=== PATIENT | male | born 1995 | race Caucasian/White ===

== ENCOUNTER 2019-07-05 02:55 | Inpatient (IN) | payer OTHER ==
[2019-07-05] MEDS ORDERED: Morphine 4 MG/ML VIAL ONE ×2 (03:22→04:32)
[2019-07-05] MEDS ORDERED: Ampicillin 2 GM VIAL ONE (03:24)
[2019-07-05] MEDS ORDERED: Ampicillin/Sulbactam 1.5 GM in Sodium Chloride 0.9% 100 ML IVPB SCH (03:30)
[2019-07-05 05:01] LABS: #Basophils 0.1 thou/uL (0.0-0.2); #Eosinphils 0.1 thou/uL (0.0-0.7); #Monocytes 0.9 thou/uL (0.11-0.59); #Neutrophils 5.2 thou/uL (1.40-6.50); %Basophils 1.1 % (0.0-1.0); %Eosinophils 0.7 % (0.0-10.0); %Monocytes 10.7 % (0.0-10.0); %Neutrophils 63.6 % (42.0-75.0); Hemoglobin 14.3 g/dL (14.0-18.0); Mean Corpuscular HGB CONC 32.2 g/dL (32.0-36.0); Mean Corpuscular Hemoglobin 29.8 pg (27.0-31.0); Mean Corpuscular Volume 92.5 fL (78.0-98.0); Mean Platelet Volume 8.3 fL (7.4-10.4); Platelet Count 272 thou/uL (130-400); RBC Distribution Width 11.4 % (11.5-14.5); White Blood Cell (WBC) Count 8.2 thou/uL (4.8-10.8)
[2019-07-05 05:22] LABS: ALT (SGPT) 18 U/L (8-55); AST (SGOT) 20 U/L (5-34); Albumin 4.4 g/dL (3.5-5.0); Alcohol 178 mg/dL (Less than 10); Alkaline Phosphatase 106 U/L (40-110); Anion Gap 12 mmol/L (10-20); BUN (Urea Nitrogen) 6 mg/dL (8.9-20.6); Bilirubin, Total 0.3 mg/dL (0.2-1.2); Calc. Creatinine Clearance 0 mL/min (70-130); Calcium 9.1 mg/dL (7.8-10.44); Carbon Dioxide 28 mmol/L (22-29); Chloride 110 mmol/L (98-107); Estimated GFR-MDRD Greater than 90; Globulin 2.8 g/dL (2.4-3.5); Glucose 106 mg/dL (70-105); Potassium 3.7 mmol/L (3.5-5.1); Protein, Total 7.2 g/dL (6.0-8.3); Sodium 146 mmol/L (136-145)
[2019-07-05] MEDS ORDERED: Dextrose 50% Abboject 50 ML SYRINGE SLOW IVP PRN (06:18)
[2019-07-05] MEDS ORDERED: Ondansetron ODT 4 MG TAB PO PRN (06:18)
[2019-07-05] MEDS ORDERED: Morphine 2 MG/ML SYRINGE SLOW IVP PRN (06:18)
[2019-07-05] MEDS ORDERED: Dextrose 5% in Water 1,000 ML IV PRN (06:18)
[2019-07-05] MEDS ORDERED: Ondansetron PF 4 MG/2 ML Vial IVP PRN (06:18)
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
[2019-07-05] MEDS: Ketorolac Tromethamine 30 MG/ML VIAL IVP SCH ×3 (06:34→18:39)
[2019-07-05] MEDS: Clindamycin/D5W 600 MG in Premix Bag 1 BAG IVPB SCH ×3 (06:35→21:20)
[2019-07-05] MEDS: Sodium Chloride 0.9% 1,000 ML IV SCH ×3 (06:35→22:16)
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
[2019-07-05] MEDS: Famotidine/PF 20 mg/2ml Vial SLOW IVP SCH ×2 (08:30→21:20)
[2019-07-05] MEDS ORDERED: Succinylcholine Chloride 20 MG/ML 10 ml SYRINGE FS ONE (09:43)
[2019-07-05] MEDS ORDERED: Dexamethasone 20 MG/5 ML VIAL ONE (09:43)
[2019-07-05] MEDS ORDERED: Lidocaine 1% PF 5 ML VIAL ONE (09:43)
[2019-07-05] MEDS ORDERED: PROPOFOL 200 MG/20 ML VIAL ONE (09:43)
[2019-07-05] MEDS ORDERED: Ondansetron PF 4 MG/2 ML Vial ONE (09:43)
[2019-07-05] MEDS ORDERED: Rocuronium Bromide 10 MG/ML (10ML VIAL) ONE (09:43)
[2019-07-05] MEDS ORDERED: Ketorolac Tromethamine 30 MG/ML VIAL ONE (09:43)
[2019-07-05] MEDS ORDERED: EPHEDRINE 25 MG/5 ML SYRINGE ONE (09:43)
[2019-07-05 11:28] VITALS: BMI 19.9
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
[2019-07-05] MEDS ORDERED: Fentanyl 100 MCG/2 ML VIAL ONE ×3 (16:00→19:35)
[2019-07-05] MEDS ORDERED: Lidocaine 1% w/Epinephrine 1:100K 20 ML VIAL ONE (16:14)
[2019-07-05] MEDS ORDERED: Bupivacaine 0.25% HCL 30 ML VIAL ONE (16:14)
[2019-07-05] MEDS ORDERED: Chlorhexidine Gluconate 15 ML UDCUP SSP ONE (16:14)
[2019-07-05] MEDS ORDERED: Hydrocortisone 1% Cream 30 GM TUBE ONE (16:14)
[2019-07-05] MEDS ORDERED: EPINEPHrine 1 MG/ML AMP ONE (16:14)
[2019-07-05] MEDS ORDERED: AFRIN NASAL MIST 15 ML BOT ONE (16:31)
[2019-07-05] MEDS ORDERED: PACU-Morphine 4MG/ML VIAL SLOW IVP PRN (19:25)
[2019-07-05] MEDS ORDERED: Ondansetron HCl/PF 4 MG/2 ML Vial IVP PRN (19:25)
[2019-07-05] MEDS ORDERED: Promethazine HCl 25 MG/ML VIAL IM PRN (19:25)
[2019-07-05] MEDS ORDERED: Promethazine HCl 25 MG/ML VIAL SLOW IVP PRN (19:25)
[2019-07-05] MEDS ORDERED: HYDROmorphone 2 MG/ML VIAL SLOW IVP PRN (19:25)
[2019-07-05] MEDS ORDERED: Acetaminophen/Codeine 120-12MG/5 ML UDCUP PO PRN (21:51)
[2019-07-05] MEDS: Ibuprofen 100 MG/5 ML UDCUP PO SCH (22:16)
[2019-07-05] MEDS: Acetaminophen 650 MG/20.3 ML UDCUP PO SCH (23:01)
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
[2019-07-05] MEDS ORDERED: Ibuprofen 100 MG/5 ML UDCUP PO SCH (23:59)
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
[2019-07-06] MEDS: Acetaminophen 650 MG/20.3 ML UDCUP PO SCH ×2 (05:45→12:00)
[2019-07-06] MEDS: Clindamycin/D5W 600 MG in Premix Bag 1 BAG IVPB SCH (05:45)
[2019-07-06] MEDS: Ibuprofen 100 MG/5 ML UDCUP PO SCH (05:45)
[2019-07-06 07:17] VITALS: BP 110/66; TEMP 97.8
[2019-07-06] MEDS: Famotidine/PF 20 mg/2ml Vial SLOW IVP SCH (08:52)
[2019-07-06] MEDS ORDERED: Chlorhexidine Gluconate 15 ML UDCUP SSP SCH (09:00)
--- NOTE | 2019-07-09 10:23 | PQF ---
ALONDRA ERWIN JOHN A JR MD [id number] SURG B- [id number] CLINICAL DOCUMENTATION CLARIFICATION FORM: POST DISCHARGE Addendum to original discharge summary date: ____ Late entry note date: __ DATE: 07/09/2019 ATTN:ARNIE HUNTER JR, MD Please exercise your independent, professional judgment in responding to the clarification form. Clinical indicators are provided on the bottom of this form for your review Please check appropriate box(s): [ ] Under weight [ ] Cachexia [ ] Loss of weight [ ] Other diagnosis [ x ] Unable to determine For continuity of documentation, please document condition throughout progress notes and discharge summary. Thank You. CLINICAL INDICATORS - SIGNS / SYMPTOMS / LABS BMI-19.9-Documented in FNS Assessment Height -1.88 M-Documented in FNS Assessment Current weight-70.307kg-Documented in FNS Assessment Right mandibular subcondylar fracture -Documented in OP note on 07/04 by Delonte Benjamin Left mandibular parasymphysis fracture -Documented in OP note on 07/04 by Delonte Benjamin RISK FACTORS BMI-19.9-Documented in FNS Assessment History of alcohol use tonight-Documented in H&P on 07/04 by Nadeem Carmona PA-C TREATMENTS: The patient will have IV hydration -Documented in H&P on 07/04 by Nadeem Carmona Full liquid diet as tolerated as the patient will be wired shut after surgery - Documented in consultation report on 07/04 by Delonte Benjamin SAP Big Data Platform Architect [employer] Winform Viewer (This form is maintained as a part of the permanent medical record) 2014 [employer]. All Rights Reserved [email or web address] [phone] [email or web address]
== END 2019-07-06 14:15 | disposition home or self-care (01) | DRG 132 ==
LOC: ERS 02:55 → SURG B 04:42
PROVIDERS: ADMIT Surgery; ATTEND Surgery
PROC: 0NSV04Z Reposition Left Mandible with Internal Fixation Device, Open Approach (ICD-10-PCS; principal; 2019-07-05)
PROC: 0NST04Z Reposition Right Mandible with Internal Fixation Device, Open Approach (ICD-10-PCS; 2019-07-05)
DX: S02.621A Fracture of subcondylar process of right mandible, initial encounter for closed fracture (principal); S02.66XA Fracture of symphysis of mandible, initial encounter for closed fracture; S01.511A Laceration without foreign body of lip, initial encounter; R40.2362 Coma scale, best motor response, obeys commands, at arrival to emergency department; R40.2142 Coma scale, eyes open, spontaneous, at arrival to emergency department; R40.2252 Coma scale, best verbal response, oriented, at arrival to emergency department; Z72.89 Other problems related to lifestyle; Y08.89XA Assault by other specified means, initial encounter; Y93.01 Activity, walking, marching and hiking; Y92.89 Other specified places as the place of occurrence of the external cause
CPT/HCPCS: 36415; 70450; 70486; 72125; 80053; 80307; 85025; 96374; 96375; 96376; C1713; G0390; J0171; J0290; J0295; J1100; J1885; J2001; J2270; J2405; J2704; J3010; J3490; S0020; S0028